=== PATIENT | female | born 1980 | race Caucasian/White ===

== ENCOUNTER 2024-05-23 10:25 | Emergency (ER) | payer OTHER, SELFPAY ==
[2024-05-23 10:26] VITALS: BP 104/69
--- NOTE | 2024-05-23 11:36 | ED.GENMED ---
History of Present Illness
General
Chief Complaint: Back Pain
Time Seen by Provider: 05/23/24 11:24
History of Present Illness
History of Present Illness:
Patient is a 43-year-old woman who is otherwise healthy presenting to the emergency department with low back pain. Patient states that a few days ago she lifted a heavy box and developed some left-sided back pain. She states that intermittently
radiates down her back leg. She has had sciatica before and this does feel similar. She has been taking Tylenol ibuprofen and a heating pad with some relief. However she states that she is extremely uncomfortable still so she came in for further
evaluation. No fevers or chills. No numbness tingling. No weakness. No saddle anesthesia or urinary incontinence or urinary retention. No spinal injection. No history of IV drug use. No recent trauma.
Past History
Past History
ED Past Medical History: Other (Back pain)
ED Past Surgical History: None
Social History
Tobacco: Smoker
Alcohol: Occasional
Drug: None
Personal: Single
Living: with family
Employment: Employed
Family History
Family History: Other (NA)
Phy Exam
Physical Exam
Physical Exam:
GENERAL: in no acute distress
HEENT: normocephalic, extraocular movements intact, moist oral mucosa
NECK: normal inspection
RESPIRATORY: no respiratory distress, clear to auscultation bilaterally
CARDIOVASCULAR: regular rate and rhythm
ABDOMEN/: soft, non-distended, non-tender to palpation, no rebound or guarding
Back: Left lumbar paraspinal tenderness
EXTREMITIES: non-tender, no edema/swelling
NEUROLOGIC: awake and alert, moves all extremities
SKIN: warm
Course
Orders/Labs/Results
Orders:
Orders
05/23/24 11:35
Dexamethasone [Decadron] 10 mg PO NOW STA
Ketorolac [Toradol] 15 mg IM NOW STA
05/23/24 12:22
Acetaminophen [Tylenol] 1,000 mg PO NOW STA
Cyclobenzaprine HCl [Flexeril] 10 mg PO NOW STA
Vital Signs
Initial and Last Documented VS:
Initial Vital Signs
Temp Pulse Resp BP Pulse Ox
98.3 F 87 16 104/69 97
05/23/24 10:26 05/23/24 10:26 05/23/24 10:05/23/24 10:26 05/23/24 10:26
Last Documented Vital Signs
Temp Pulse Resp BP Pulse Ox
98.3 F 87 16 104/69 97
05/23/24 10:26 05/23/24 10:05/23/24 10:05/23/24 10:05/23/24 10:26
MDM/Problems Addressed
Differential Diagnosis Includes:
Patient is a 43-year-old woman presenting to the emergency department with back pain. Vitals and exam are unremarkable. Likely musculoskeletal with component of sciatica given the radiation. Low concern for acute life threatening etiology.
Patient does not have red flag s/s for cauda equina syndrome, osteomylitis, discitis, epidural abscess. History and exam not consisitent with traumatic fracture or pathologic fracture. Hx and exam of low concern for renal stone or pyelo and not
consistent with aortic catastrophe. Will medicate and reassess. Consider imaging however given no traumatic injuries we will hold off at this time.
*Critical Care Note
Total Time (30-74mins, 75-104mins- exclusive of procedures): Not Applicable
Update Note
Update Note:
On reevaluation patient still with significant pain. Will trial Flexeril and Tylenol
On reevaluation patient feels much better. Strict return precautions given. Patient educated on medication regimen. Will prescription of Flexeril.
ED Attending Note
-
Portions of this chart may have been created with voice recognition software.� Occasional wrong word or��sound alike� substitutions may have occurred due to the inherent limitations of voice recognition software.
Discharge Plan
Departure
Patient Disposition: Home (Routine Discharge)
Date of Disposition: 05/23/24
Time of Disposition: 12:58
Patient with high blood pressure during this ER visit?: No
Discharge Problem:
Back pain
Instructions: Low Back Pain (DC), Radiculopathy (DC)
Prescriptions:
New
cyclobenzaprine 5 mg tablet
5 mg PO TID PRN (Reason: muscle spasm) Qty: 14 0RF
Referrals:
Cindy Castellanos CRNP [Family Provider] -
Activity Restrictions/Additional Instructions:
We discussed pain medications:
You may take Tylenol (also known as Acetaminophen) for pain.
You may take 1000mg Acetaminophen (two extra-strength tablets) per dose, which should be taken every 6-8 hours, or three times a day.
If you have normal strength Tylenol, you can take 650mg (two normal strength tablets) every 4-6 hours.
Do not take more than 3,000mg (3 grams) of Acetaminophen per day.
Never take more than as directed on the bottle.
You may also take Ibuprofen (also known as Motrin or Advil). If taking with Tylenol, alternate and take between dosing.
You may take 400-800mg of Ibuprofen per dose, which should be taken every 6-8 hours.
Do not take more than 3200mg (3.2 grams) of Ibuprofen per day.
You may also benefit from using a Lidocaine Patch (also known as 'Salon Pas'), which is an over the counter pain patch.
Place it just over the site of pain, avoiding areas of skin damage, as per instructions on the patch.
You may use Flexeril as prescribed.
Please see your primary care doctor soon to be reevaluated and to make sure that you are improving. We have included information about establishing care with a doctor if you do not have one.
We talked about your evaluation, diagnosis, and treatment in the Emergency Department today. You must see your primary doctor for recheck and followup care in order to evaluate your progress or any changes. Have your doctor recheck the test
results/information from the ED visit. As discussed, RETURN to the ED if you develop worsening/changing symptoms or have no improvement in symptoms after the treatments provided.
Interventions
Interventions:
*Risk Screen - Suicide Last Done: 05/23/24 10:28
*Neglect/Abuse Screening Last Done: 05/23/24 10:28
Discharge Date and Time
Print Language: MALTESE
[2024-05-23] MEDS: DECADRON 10 MG PO (11:51)
[2024-05-23] MEDS: TORADOL 15 MG IM (11:52)
[2024-05-23] MEDS: FLEXERIL 10 MG PO (12:39)
[2024-05-23] MEDS: TYLENOL 1000 MG PO (12:39)
[2024-05-23 13:39] VITALS: BP 129/85
== END 2024-05-23 13:42 | disposition home or self-care (01) ==
LOC: EMR 10:25
PROVIDERS: EMERGENCY PHYSICIAN Student in an Organized Health Care Education/Training Program; FAMILY PHYSICIAN Nurse Practitioner Family
DX: M54.50 Low back pain, unspecified (principal); X50.0XXA Overexertion from strenuous movement or load, initial encounter; F17.200 Nicotine dependence, unspecified, uncomplicated
CPT/HCPCS: 99284; 96372

== ENCOUNTER 2025-02-13 07:14 | Emergency (ER) | payer OTHER, SELFPAY ==
[2025-02-13 07:15] VITALS: BP 130/74
--- NOTE | 2025-02-13 07:55 | ED.GENMED ---
History of Present Illness
General
Chief Complaint: Abdominal Symptoms
Source: patient
Exam Limitations: none
Time Seen by Provider: 02/13/25 07:31
History of Present Illness
History of Present Illness:
44yoF with a history of ovarian cysts presenting for evaluation of abdominal pain. Symptoms began 1 week ago. She initially noticed what felt like a lump in her left lower abdomen/groin region. The lump has since resolved. She has been having
constant pain for the past week which waxes and wanes. She has a history of a ruptured ovarian cyst about a year ago and this feels similar. She has been taking Tylenol without any relief. Pain is worse with movement. She is also having nausea
but has not vomited. Last menstrual period was about 2 weeks ago but she did notice some spotting a few days ago. She denies any fevers, chills, diarrhea, constipation, urinary symptoms. No previous abdominal surgeries.
Past History
Past History
ED Past Medical History: Other (Back pain)
ED Past Surgical History: None
Social History
Tobacco: Smoker
Alcohol: Occasional
Drug: None
Personal: Single
Living: with family
Employment: Employed
Family History
Family History: Other (NA)
Phy Exam
Physical Exam
Physical Exam:
Appears uncomfortable, non-toxic
General Physical Exam
General Presentation: well appearing
General Skin: warm and dry
General Habitus: normal
General Mental: alert
ENT Exam
ENT Exam: normocephalic
Pulmonary Exam
Pulmonary Exam: no respiratory distress
Gastrointestinal Exam
Gastrointestinal Exam: soft, non distended, no cva tenderness and other (+Tenderness in LLQ. Abdomen soft, non-distended. No rebound or guarding. No palpable hernia. )
Neurological Exam
Neurological Exam: alert
D[place]ah Coma Scale
Eye Opening: Spontaneous
Verbal Response: Oriented
Motor Response: Obeys Commands
GCS Total Score: 15
Skin Exam
Skin Exam: normal color and warm/dry
Psychiatric Exam
Psychiatric Exam: normal mood/affect
Course
Orders/Labs/Results
Orders:
Orders
02/13/25 07:54
0.9% Sodium Chloride 1000 ml [Nss] 1,000 ml IV BOLUS
Ketorolac [Toradol] 15 mg IV NOW STA
Ondansetron Injectable [Zofran] 4 mg IV NOW STA
Test Result ONCE
Pelvis & Transvaginal US [US Pelvis W Transvag Combined] Urgent
Comment:
Reason For Exam: L pelvic pain
02/13/25 08:12
Complete Blood Count/With Diff Urgent
Comprehensive Metabolic Panel Urgent
HCG, Serum Qualitative Screen Urgent
Urinalysis Reflex To Culture Urgent
Date Specimen was Collected: 02/13/25
Time Specimen was Collected: 07:58
Urine Microscopic Reflex Cult Urgent
02/13/25 08:54
Ketorolac [Toradol] 15 mg IV NOW STA
02/13/25 10:40
CT Abd/pelvis W Iv Cont Urgent
Comment:
Reason For Exam: LLQ pain
HYDROmorphone [Dilaudid] 0.5 mg IV NOW STA
Abnormal Lab Results
02/13/25
08:12
Hct 36.7 L %
(37.0-47.0)
Chloride 109 H mmol/L
(98-107)
Glucose 105 H mg/dl
(70-99)
Urine Bacteria (Reflex) Few A
(Negative)
Urine Albumin (Reflex) 1+ A
(Neg - Trace)
02/13/25 08:12
02/13/25 08:12
Vital Signs
Initial and Last Documented VS:
Initial Vital Signs
Temp Pulse Resp BP Pulse Ox
98.3 F 78 16 130/74 98
02/13/25 07:15 02/13/25 07:15 02/13/25 07:15 02/13/25 07:15 02/13/25 07:15
Last Documented Vital Signs
Temp Pulse Resp BP Pulse Ox
98.3 F 78 16 109/75 98
02/13/25 07:15 02/13/25 07:15 02/13/25 07:15 02/13/25 12:00 02/13/25 12:15
MDM/Problems Addressed
Differential Diagnosis Includes:
44yoF here with LLQ pain x 1 week. Hx of ovarian cysts and this feels the same. VSS. She appears uncomfortable but is nontoxic. No signs of peritonitis on abdominal exam. Differential diagnosis includes but is not limited to: Ovarian cyst,
ovarian torsion, musculoskeletal, diverticulitis, kidney stone
Initial ED plan: Check CBC, CMP, hCG, UA, and pelvic ultrasound. IV Toradol for pain.
*Pulse Oximetry
SaO2: 98
Oxygen Mode of Delivery: Room air
Patient hypoxic: no (98%)
*Critical Care Note
Total Time (30-74mins, 75-104mins- exclusive of procedures): Not Applicable
Update Note
Update Note:
Labs unremarkable including normal white count, renal function, LFTs. UA bland without signs of infection. hCG negative. Pelvic ultrasound normal. CT added due to persistent pain. CT also returned negative for acute findings. No indication for
hospitalization. She was advised to follow-up with her PCP and ED return precautions reviewed. Patient discharged in stable condition.
ED Attending Note
-
Portions of this chart may have been created with voice recognition software.� Occasional wrong word or��sound alike� substitutions may have occurred due to the inherent limitations of voice recognition software.
Discharge Plan
Departure
Patient Disposition: Home (Routine Discharge)
Date of Disposition: 02/13/25
Time of Disposition: 12:32
Patient with high blood pressure during this ER visit?: No
Discharge Problem:
Left lower quadrant abdominal pain
Instructions: Abdominal Pain
Prescriptions:
No Action
cyclobenzaprine 5 mg tablet
5 mg PO TID PRN (Reason: muscle spasm) Qty: 14 0RF
Referrals:
Cindy Castellanos CRNP [Family Provider, Family Practice]
Activity Restrictions/Additional Instructions:
Take Tylenol and ibuprofen as needed for pain. Apply heating pad to affected area.
Please call tomorrow to schedule a follow-up appointment with your family doctor this week. Return to the ER with any new or worsening symptoms.
Interventions
Interventions:
*Risk Screen - Suicide Last Done: 02/13/25 07:15
*General Assessment Last Done: 02/13/25 12:45
*Neglect/Abuse Screening Last Done: 02/13/25 07:15
*ED- Fall Risk Assessment Last Done: 02/13/25 08:00
*ED COVID-19 Vaccine History Last Done: 02/13/25 08:00
*Nursing Disposition Last Done: 02/13/25 12:45
CK-Mncjcm-Dvfcqlbopc Assessment Last Done: 02/13/25 08:00
Discharge Date and Time
Print Language: DANISH
[2025-02-13 08:14] VITALS: BMI 24.6
[2025-02-13] MEDS: NSS 1000 IV (08:15)
[2025-02-13] MEDS: TORADOL 15 MG IV ×2 (08:15→09:43)
[2025-02-13 08:25] LABS: Urine Character Clear (Clear)
[2025-02-13 08:37] LABS: HCG, Serum Qualitative Screen Negative
[2025-02-13 08:51] LABS: Hematocrit 36.7 % (37.0-47.0); Hemoglobin 12.5 g/dL (12.0-16.0); Mean Corp Hgb Conc. 34.1 g/dL (33.0-37.0); Mean Corpuscular Volume 84.4 fL (81.0-99.0); Nucleated Red Blood Cells % 0 %; Platelet Count 308 10^3/uL (130-400); Red Cell Dist. Width 13.7 % (11.5-14.5)
[2025-02-13 08:53] LABS: ALT (SGPT) 15 U/L (0-35); AST (SGOT) 15 U/L (14-36); Albumin 4.1 g/dl (3.5-5.0); Alkaline Phosphatase 38 U/L (38-126); Blood Urea Nitrogen 15 mg/dl (7-17); Calcium 9.4 mg/dl (8.4-10.2); Carbon Dioxide 23 mmol/L (22-30); Chloride 109 mmol/L (98-107); Estimated Creatinine Clearance 104 ml/min; Glucose 105 mg/dl (70-99); Potassium 4.4 mmol/L (3.5-5.1); Sodium 138 mmol/L (135-145); Total Protein 7.0 g/dl (6.3-8.2); eGFR > 60.00
[2025-02-13 08:56] LABS: Urine Red Blood Cell None Seen /HPF (0-2); Urine White Cell 0-2 /HPF (0-5)
[2025-02-13 10:37] VITALS: BP 134/53
[2025-02-13] MEDS: DILAUDID 0.5 MG IV (10:47)
[2025-02-13 11:00] VITALS: BP 112/67
[2025-02-13 11:53] VITALS: BP 98/60
[2025-02-13 12:00] VITALS: BP 109/75
== END 2025-02-13 12:45 | disposition home or self-care (01) ==
LOC: EMR 07:14
PROVIDERS: Physician Assistant; EMERGENCY PHYSICIAN Emergency Medicine; FAMILY PHYSICIAN Nurse Practitioner Family
DX: R10.32 Left lower quadrant pain (principal); F17.200 Nicotine dependence, unspecified, uncomplicated
CPT/HCPCS: 99284; 96374; 96375; 96376; 96361; 74177; 76830; 76856; 80053; 81003; 81015; 84703; 85025; Q9967